=== PATIENT | female | born 1965 | race Caucasian/White ===

== ENCOUNTER → 2022-02-19 08:56 | Outpatient (CLI) | payer OTHER, SELFPAY ==
[2022-02-19 10:40] LABS: COVID19 -Nasal RAPID Negative (Negative)
== END ==
PROVIDERS: PCP Specialist; Visit Provider Surgery
DX: Z01.812 Encounter for preprocedural laboratory examination (principal); Z20.822 Contact with and (suspected) exposure to COVID-19
CPT/HCPCS: 87635; C9803

== ENCOUNTER 2022-02-20 07:26 | Day surgery (SDC) | payer OTHER, SELFPAY ==
--- NOTE | 2022-02-20 | PATH_ITS ---
[facility] Accession Number: [id number] . 01 Material submitted: . colon - TRANSVERSE COLON POLYP . 01 Diagnosis: Transverse Colon, Polyp, Biopsy: Tubular adenoma. [facility] 02/24/2022 1525 Local . 01 Electronically signed: . Waleska Porter MD, Pathologist NPI- [id number] . 01 Gross description: . TRANSVERSE COLON POLYP: Received in formalin is 1 fragment(s) of velez, soft tissue measuring 0.5 x 0.3 x 0.2 cm submitted entirely in 1 cassette(s) /CPE 02/21/2022 0424 Local . 01 Pathologist provided ICD-10: D12.3 . 01 CPT . 674786 Specimen Comment: A courtesy copy of this report has been sent to [phone] Performed at: 01 [facility] [address] [place] [address] [id number] MD Harpreet Mcgraw MD Phone: [phone]
[2022-02-20 07:48] VITALS: BP 118/74; PULSE 69; RESP 14; TEMP 36.2; O2SAT 97
[2022-02-20 07:49] VITALS: BMI 25.4
[2022-02-20] MEDS: LACTATED RINGERS 1,000 ML 100 ML IV (08:13)
--- NOTE | 2022-02-20 08:20 | PM.HP.1 ---
History of Present Illness History of Present Illness Date Patient Seen: 02/20/22 Time Patient Seen: 08:20 Chief complaint: SDC Narrative: Lara is a 56-year-old woman here for colonoscopy. She has never had a colonoscopy before. She has never had any type of colon cancer screening before. She has no known family history of colon cancer. Patient History Medical History (Updated 02/20/22 @ 08:21 by Yuri Rodriguez MD) Chicken pox (1973) CTS (carpal tunnel syndrome) (1999) Surgical History (Updated 05/12/18 @ 12:00 by Jordana Terry) Anesthesia History of carpal tunnel repair (2012) Family & Social History Family History (Updated 10/09/16 @ 00:00 by Conversion Provider) Father Age: 81 Hypertension Mother Cancer Brother No problems noted. Grandfather No problems noted. Grandmother No problems noted. Social History: household members spouse Tobacco & Substance use: Smoking Status Never smoker alcohol intake current Substance Use Type does not use Meds Home Medications and Allergies Home Medications Medication Instructions Recorded Confirmed Type No Known Home Medications 02/20/22 02/20/22 History Allergies Allergy/AdvReac Type Severity Reaction Status Date / Time No Known Allergies Allergy Uncoded 02/20/22 07:46 Exam Vital Signs (past 8 hours): - 02/20/22 07:48 Temperature 97.1 F L Pulse Rate 69 Respiratory Rate 14 Blood Pressure 118/74 Pulse Oximetry 97 Oxygen Delivery Method Room Air Const General: healthy appearing Resp Effort & Inspection: normal respiratory effort Assessment & Plan Assessment and plan (1) Colon cancer screening: Status: Acute Plan We reviewed the risks and benefits of colonoscopy for colon cancer screening. She would like to proceed. COVID-19 COVID-19 status: Negative Result date/Date tested (Pos, Neg/Pending): 02/19/22 Time Spent With Patient Critical Care time: I spent a total of [] minutes of critical care time on this patient's care today; this time is exclusive of procedural time.
[2022-02-20] MEDS: fentaNYL 250 MCG/5 ML INJ 150 MCG IV (08:51)
[2022-02-20] MEDS: MIDAZOLAM 5 MG/5 ML VIAL IV (08:52)
--- NOTE | 2022-02-20 08:57 | PM.OP.COLON ---
Operative Date/Time/Diagnoses Date of procedure: 02/20/22 Time of procedure: 08:58 Pre-op diagnosis: Colon cancer screening Post-op diagnosis: same Procedure & Clinicians Study performed: Colonoscopy Same procedure as scheduled: Yes Surgeon: Yuri Rodriguez Procedure Notes Procedure in detail: Surgeon: Yuri Rodriguez MD Procedure: The patient was brought to the endoscopy suite, placed in left lateral decubitus position. The patient was connected to monitoring devices. A time-out was performed. Sedation was administered. Once the patient was adequately sedated, a digital rectal exam was performed and was normal. The scope was then inserted and advanced to the cecum where the appendiceal orifice was identified and photographed. The terminal ileum was intubated and no abnormalities were noted. The scope was then slowly withdrawn over greater than 6 minutes. Mucosa was thoroughly inspected. There was a polyp in the midtransverse colon, roughly 4 mm, removed with a cold snare. There were some scattered diverticula in the sigmoid colon. The scope was retroflexed in the rectum. No abnormalities were noted. The scope was straightened and removed. The patient was awakened and brought to recovery. Versed: 5 mg Fentanyl: 150 mcg EBL: 5 mL Findings: Small transverse colon polyp, scattered sigmoid diverticulosis Scope withdrawal time: 10 Sedation minutes: 24 Post-procedure Recommendations: Will call with biopsy results Disposition: PACU
[2022-02-20 09:00] VITALS: BP 107/68; PULSE 66; RESP 10; TEMP 36.9; O2SAT 91
[2022-02-20 09:04] VITALS: BP 109/69; PULSE 67; RESP 15; O2SAT 93
[2022-02-20 09:10] VITALS: BP 96/59; PULSE 72; RESP 15; O2SAT 94
[2022-02-20 09:15] VITALS: BP 134/87; PULSE 68; RESP 136; O2SAT 97
== END 2022-02-20 09:22 | disposition home or self-care (01) ==
PROVIDERS: Referring Provider Surgery; Visit Provider Surgery
PROC: 0DJD8ZZ Inspection of Lower Intestinal Tract, Via Natural or Artificial Opening Endoscopic (ICD-10-PCS; CPT 45378; principal; 2022-02-20 08:30)
DX: Z12.11 Encounter for screening for malignant neoplasm of colon (principal); K57.30 Diverticulosis of large intestine without perforation or abscess without bleeding; D12.3 Benign neoplasm of transverse colon
CPT/HCPCS: 45385; 99152; 99153; J2250; J3010